=== PATIENT | female | born 1985 | race Caucasian/White ===

== ENCOUNTER 2017-04-29 13:41 | Emergency (ER) | payer OTHER ==
[~2017-04-29] VITALS: Ht 160 cm; Wt 72.7 kg
[2017-04-29 15:15] VITALS: BP 152/89
[2017-04-29] MEDS ORDERED: METHOCARBAMOL 500 MG TABLET PO ONE (15:45)
[2017-04-29] MEDS ORDERED: IBUPROFEN 600 MG TABLET PO ONE (15:45)
== END 2017-04-29 16:17 | disposition home or self-care (01) ==
LOC: EMS 13:43 → EDBD 13:43 → EMS 16:17
DX: S13.4XXA Sprain of ligaments of cervical spine, initial encounter (principal); M25.551 Pain in right hip; V49.49XA Driver injured in collision with other motor vehicles in traffic accident, initial encounter; Y93.89 Activity, other specified; Y92.89 Other specified places as the place of occurrence of the external cause; Y99.8 Other external cause status
CPT/HCPCS: 99283

== ENCOUNTER 2018-12-25 03:39 | Emergency (ER) | payer OTHER ==
[~2018-12-25] VITALS: Ht 167.6 cm; Wt 75.0 kg
[2018-12-25 06:59] VITALS: BP 130/80
[2018-12-25] MEDS ORDERED: NEOMYCIN/POLYMYXIN B/HYDROCORT 10 ML OTIC SUSPENSION AD ONE (07:00)
== END 2018-12-25 07:00 | disposition home or self-care (01) ==
LOC: EMS 03:41
DX: H60.91 Unspecified otitis externa, right ear (principal)